=== PATIENT | female | born 1980 | race Caucasian/White ===

== ENCOUNTER 2021-05-30 15:43 | Emergency (ER) | payer OTHER ==
[~2021-05-30] VITALS: Ht 144.8 cm; Wt 76.3 kg
[2021-05-30 15:47] VITALS: BP 142/86
--- NOTE | 2021-05-30 15:58 | NUR ---
PATIENT AMBULATED TO BED 7.
--- NOTE | 2021-05-30 16:12 | NUR ---
PA CORBETT BEDSIDE EVALUATING PT
--- NOTE | 2021-05-30 16:19 | NUR ---
URINE WALKED TO LAB AND HANDED TO ELIOT
--- NOTE | 2021-05-30 16:23 | NUR ---
40Y FEMALE WITH C/O 12/07 LLQ AND LUQ ABDOMINAL PAIN X3 DAYS. PER PATIENT "THE PAIN IS MAINLY FELT IN THE LLQ AND LUQ, BUT IS SOMETIMES FELT MID-UPPER ABDOMINAL REGION." PT ALSO EXPERICING N/V. PT ABDOMEN IS SOFT AND TENDER TO TOUCH. BOWEL SOUNDS ACTIVE. PT DENIES ANY CP, SOB, FEVER/CHILLS. PT A&OX4, SKIN DRY AND INTACT. PMH:DENIES NKA
[2021-05-30] MEDS ORDERED: KETOROLAC 30 MG/ML VIAL IM ONE (16:25)
[2021-05-30] MEDS ORDERED: ONDANSETRON 4 MG/2 ML VIAL IVP ONE (16:25)
--- NOTE | 2021-05-30 16:38 | NUR ---
CT CONSENT SIGNED AND PLACED INTO PATIENT CHART
[2021-05-30] MEDS: NACL 0.9% 1,000 ML IV SCH ×2 (16:47→19:55)
--- NOTE | 2021-05-30 16:50 | NUR ---
BLOODWORK COLLECTED AND WALKED TO LAB
[2021-05-30 17:14] LABS: APPEARANCE,URINE CLEAR (CLEAR); BILIRUBIN,URINE NEGATIVE (NEGATIVE); BLOOD, URINE 2+ (NEGATIVE); COLOR,URINE YELLOW (YELLOW); LEUKOCYTE ESTERASE ,URINE 3+ (NEGATIVE); NITRITE, URINE NEGATIVE (NEGATIVE); UGLUCOSE NEGATIVE (NEGATIVE)
[2021-05-30 17:15] LABS: BASOPHILS # (AUTO) 0.1 K/uL (0.00-0.22); BASOPHILS % (AUTO) 0.9 % (0.0-2.0); EOSINOPHILS # (AUTO) 0.2 K/uL (0-0.4); EOSINOPHILS % (AUTO) 2.2 % (0.0-4.0); HEMATOCRIT 27.9 % (36-48); HEMOGLOBIN 8.6 g/dL (12.0-16.0); LYMPHOCYTES # (AUTO) 1.7 K/uL (2.5-16.5); LYMPHOCYTES % (AUTO) 18.2 % (20.5-51.1); MEAN CORPUSCULAR HEMOGLOBIN 20 pg (27-31); MEAN CORPUSCULAR HGB CONC 31 g/dL (33-37); MEAN CORPUSCULAR VOLUME 65.8 fL (80-94); MONOCYTES # (AUTO) 0.5 K/uL (0.8-1.0); MONOCYTES % (AUTO) 5.4 % (1.7-9.3); NEUTROPHILS # (AUTO) 6.8 K/uL (1.8-7.7); NEUTROPHILS % (AUTO) 73.3 % (42.2-75.2); PLATELET COUNT (AUTO) 553 K/uL (140-450); RED BLOOD CELL COUNT(AUTO) 4.24 MIL/uL (4.20-5.40); RED CELL DISTRIBUTION WIDTH 16.6 % (11.6-13.7); WHITE BLOOD COUNT (AUTO) 9.3 K/uL (4.8-10.8)
[2021-05-30 17:21] LABS: RBC,URINE 20-50 /HPF (0-5); WBC,URINE 16-25 (MOD) /HPF (0-5)
[2021-05-30 17:27] LABS: ALBUMIN 2.9 g/dL (3.4-5.0); ANION GAP 14.8 (8-16); CARBON DIOXIDE 24.9 mmol/L (21-32); CREATININE 1.1 mg/dL (0.6-1.3); POTASSIUM 3.7 mmol/L (3.5-5.1); TOTAL BILIRUBIN 0.3 mg/dL (0.0-1.0)
--- NOTE | 2021-05-30 17:49 | NUR ---
Patient appears to be resting comfortably in bed. Vital Signs within normal limits. Respirations even and unlabored.
--- NOTE | 2021-05-30 17:53 | NUR ---
PT SENT TO CT VIA W/C WITH COOKER MECHANIC
--- NOTE | 2021-05-30 17:54 | NUR ---
PT TAKEN TO CT VIA W/C
--- NOTE | 2021-05-30 18:03 | NUR ---
PT BACK FROM CT
[2021-05-30] MEDS ORDERED: IBUP-2213 PO ×2 (19:24→22:28)
--- NOTE | 2021-05-30 19:35 | NUR ---
Pt report given to BETY ELLIS. Transfer of care at this time.
[2021-05-30] MEDS ORDERED: SULF-59 PO (19:41)
[2021-05-30] MEDS ORDERED: ACET-8386 PO (19:41)
[2021-05-30] MEDS ORDERED: cefTRIAXone 1,000 MG VIAL ONE (20:12)
--- NOTE | 2021-05-30 20:21 | NUR ---
Ultrasound at bedside.
--- NOTE | 2021-05-30 20:25 | NUR ---
ULTRASOUND AT BEDSIDE
[2021-05-30] MEDS ORDERED: CIPR500T9 PO (22:10)
[2021-05-30] MEDS ORDERED: CIPR500T4 PO (22:28)
[2021-05-30] MEDS ORDERED: DOCU-299 PO (22:28)
[2021-05-30] MEDS ORDERED: HYDR-5080 PO (22:28)
[2021-05-30 22:29] VITALS: BP 126/78
--- NOTE | 2021-05-30 22:33 | NUR ---
Patient discharged with v/s stable. Written and verbal after care instructions given and explained. Patient alert, oriented and verbalized understanding of instructions. Ambulatory with steady gait. All questions addressed prior to discharge. ID band removed. Patient advised to follow up with PMD. Rx of HYDROCODONE/ACETAMINOPHEN, CIPROFLOXACIN, IBUPROFEN given. Patient educated on indication of medication including possible reaction and side effects. Opportunity to ask questions provided and answered.
--- NOTE | 2021-06-01 16:55 | NUR ---
LATE ENTRY. ROCEPHIN DISCONTINUED AT 2229 ON 05/30/21
== END 2021-05-30 22:33 | disposition home or self-care (01) ==
LOC: MED 15:43
DX: N20.0 Calculus of kidney (principal); N39.0 Urinary tract infection, site not specified; N83.209 Unspecified ovarian cyst, unspecified side
CPT/HCPCS: 36415; 74177; 76856; 80053; 81001; 81025; 83690; 85025; 87086; 93976; 96361; 96365; 96366; 96372; 96375; 99285; J0696; J1885; J2405; J7030; Q0092; Q9967

== ENCOUNTER 2021-12-06 19:25 | Inpatient (IN) | payer OTHER ==
[~2021-12-06] VITALS: Ht 144.8 cm; Wt 72.6 kg
[~2021-12-06 19:25] MED LIST: CIPR500T4 PO; DOCU-299 PO; HYDR-5080 PO; IBUP-2213 PO
[2021-12-06 19:45] VITALS: BP 112/78
--- NOTE | 2021-12-06 19:50 | NUR ---
RECEIVED PT IN BED 4, AAOX4. VERBALIZED CC: LEFT LOWER BACK, RISING W/ OOZING PUSTULE DRAINAGE, PT IS CURRENTLY ON IVPB ERTAPENEM 1 GM DAILY. THIS PT IS S/P GB REMOVAL 3 WEEKS AGO- HAS LAPAROSCOPIC INCISSIONS X3, AND UMBILICUS, HEALING W/ GOOD INTENTION.PT ALSO W/ HX OF 8 KIDNEY STONES REMOVAL IN AUGUST 2021, WAS TOLD SHE HAS 4 STONES THAT WERE NOT RETRIVABLE IN Sx DUE TO HER KIDNEY'S UNUSUAL SHAPE.
--- NOTE | 2021-12-06 20:18 | NUR ---
SEEN AT BEDSIDE BY DR ELIZABETH.
--- NOTE | 2021-12-06 20:36 | NUR ---
PT W/ RT UPPER ARM MIDLINE. ON ANTIBX AT HOME.
[2021-12-06 21:03] LABS: BASOPHILS # (AUTO) 0.1 K/uL (0.00-0.22); EOSINOPHILS # (AUTO) 0.2 K/uL (0-0.4); EOSINOPHILS % (AUTO) 2.2 % (0.0-4.0); HEMATOCRIT 23.9 % (36-48); HEMOGLOBIN 7.4 g/dL (12.0-16.0); MEAN CORPUSCULAR HEMOGLOBIN 22 pg (27-31); MEAN CORPUSCULAR HGB CONC 31 g/dL (33-37); MONOCYTES # (AUTO) 0.5 K/uL (0.8-1.0); MONOCYTES % (AUTO) 5.6 % (1.7-9.3); NEUTROPHILS # (AUTO) 6.7 K/uL (1.8-7.7); NEUTROPHILS % (AUTO) 70.2 % (42.2-75.2); PLATELET COUNT (AUTO) 677 K/uL (140-450); RED BLOOD CELL COUNT(AUTO) 3.41 MIL/uL (4.20-5.40); RED CELL DISTRIBUTION WIDTH 21.7 % (11.6-13.7); WHITE BLOOD COUNT (AUTO) 9.5 K/uL (4.8-10.8)
[2021-12-06 21:24] LABS: ALBUMIN 2.1 g/dL (3.4-5.0); ANION GAP 13.4 (8-16); ASPARTATE AMINOTRANSFERASE 52 U/L (15-37); CARBON DIOXIDE 26.4 mmol/L (21-32); CHLORIDE 103 mmol/L (98-107); CREATININE 1.2 mg/dL (0.6-1.3); GFR ARICAN-AMERICAN 64 mL/min (>90); GLUCOSE 96 mg/dL (74-106); POTASSIUM 3.8 mmol/L (3.5-5.1); SODIUM SERUM 139 mmol/L (136-145); TOTAL BILIRUBIN 0.1 mg/dL (0.0-1.0); UREA NITROGEN, BLOOD 12 mg/dL (7-18)
--- NOTE | 2021-12-06 21:52 | NUR ---
Pt returned to room #[address] scan.
[2021-12-06] MEDS ORDERED: PIPERACILLIN/TAZOBACTAM 2.25 GM in DEXTROSE 5% 50 ML IV ONE (22:45)
[2021-12-06] MEDS ORDERED: VANCOMYCIN 1GM/DEXT 5% PREMIX 200 ML IV ONE (22:45)
[2021-12-06] MEDS ORDERED: VANCOMYCIN PER PHARMACY MC PRN ×2 (22:45→23:20)
[2021-12-06] MEDS ORDERED: KCL 20 MEQ/WATER INJ PREMIX 200 ML IV PRN (23:20)
[2021-12-06] MEDS: NACL 0.9% 1,000 ML IV SCH (23:20)
[2021-12-06] MEDS ORDERED: ONDANSETRON 4 MG/2 ML VIAL IVP PRN (23:20)
[2021-12-06] MEDS ORDERED: MORPHINE SULFATE 4 MG/ML SYR IVP PRN (23:20)
[2021-12-06] MEDS ORDERED: HYDROcodone/APAP 5/325 MG 1 TAB TAB PO PRN (23:20)
[2021-12-07] MEDS ORDERED: VANCOMYCIN 1,000 MG VIAL ONE (00:03)
[2021-12-07] MEDS ORDERED: PIPERACILLIN/TAZOBACTAM 2.25 GM VIAL IV ONE (00:03)
--- NOTE | 2021-12-07 01:04 | NUR ---
Patient will be admitted to care of Dr Burns. Admited to room 106B. SBAR report Belongings list completed. SBAR Report to Yuliya LERMA at bedside. Pt NPO except for meds.
[2021-12-07 02:34] VITALS: BP 119/85
[2021-12-07] MEDS ORDERED: PIPERACILLIN/TAZOBACTAM 3.375 GM VIAL IV ONE (06:39)
[2021-12-07 06:55] LABS: ALBUMIN 1.8 g/dL (3.4-5.0); ANION GAP 14.5 (8-16); CARBON DIOXIDE 24.3 mmol/L (21-32); POTASSIUM 3.8 mmol/L (3.5-5.1); TOTAL BILIRUBIN 0.2 mg/dL (0.0-1.0)
[2021-12-07] MEDS: PIPERACILLIN/TAZOBACTAM 3.375 GM in DEXTROSE 5% 50 ML IV SCH ×4 (06:55→23:54)
--- NOTE | 2021-12-07 07:10 | NUR ---
RECEIVED REPORT FROM ARMORED TRUCK DRIVER NURSE CANDY FOR CONTINUITY OF CARE. PATIENT ASLEEP NO DISTRESS NOTED. RESPIRATION EVEN AND NOT LABORED NO SHORTNESS OF BREATH ON ROOM AIR. IV SITE ON RIGHT UPPER ARM MIDLINE RUNNING ZOSYN AT 100 CC/HOUR. ALL SAFETY MEASURE IN PLACE.
[2021-12-07 08:00] VITALS: BP 119/72
--- NOTE | 2021-12-07 09:25 | NUR ---
I TRIED TO GIVE PATIENT HEPARIN BUT SHE REFUSED EVEN WITH ENCOURAGEMENT AND EXPLANATION OF RISK AND BENEFIT. PATIENT ASK TO CHANGE THE LEFT S/P NEPHROSTOMY STENT SITE TO BE CHANGE NOTED WITH YELLOWISH DRAINAGE DRESSING IS SOAK CLEANSE AND CHANGE DRESSING.
--- NOTE | 2021-12-07 09:29 | NUR ---
PATIENT ASKING WHEN SHE CAN EAT INFORM DR. COPELAND THAT AT NURSE STATION AND HE SAID LET WAIT WHAT THE DEFENSE ATTORNEY WANT FOR PATIENT INFORM PATIENT REGARDING DR. COPELAND ADVICE AND SHE UNDERSTAND.
--- NOTE | 2021-12-07 10:26 | NUR ---
PATIENT HAS BEEN SCREENED AND CATEGORIZED LOW NUTRITION RISK. PATIENT WILL BE SEEN WITHIN 7 DAYS OF ADMISSION. 12/06/21-12/13/[address]
[2021-12-07 12:00] VITALS: BP 118/66
--- NOTE | 2021-12-07 12:21 | NUR ---
I CHECKED PATIENT IV AND SHE ASKED AGAIN WHEN CAN SHE EAT PATIENT STATED I'M SO HUNGRY AND THIRSTY LEFT MESSAGE TO DR. COPELAND WAITING FOR HIS RESPONSE.
[2021-12-07] MEDS: NACL 0.9% 1,000 ML IV SCH (12:36)
--- NOTE | 2021-12-07 13:29 | NUR ---
PATIENT ASKING THE RESULT OF HER BLOOD DRAWN THIS MORNING AND THE CT SCAN READ TO THE RESULT VERBALIZED UNDERSTANDING.
--- NOTE | 2021-12-07 13:52 | NUR ---
PATIENT COMPLAIN OF HEADACHE MEDICATED ORDER AND DR. COPELAND ORDER TO GIVE PATIENT DIET ORDER NOTED AND CARRIED OUT. PATIENT VERBALIZED THAT HER HEADACHE IS BETTER NOW.
[2021-12-07 16:00] VITALS: BP 109/66
--- NOTE | 2021-12-07 16:00 | NUR ---
PATAIENT ON BED RESTING ON STABLE CONDITION IV INFUSING AT 80 CC/HOUR TOLERATED WELL NO FLUID OVERLOAD NOTED.
--- NOTE | 2021-12-07 18:30 | NUR ---
MARIA GUADALUPE MCGRAW IV ANTIBIOTIC NO ADVERSE REACTION. NO FEVER OR CHILLS ENCOURAGED TO INCREASE FLUID TOLERATED.
--- NOTE | 2021-12-07 19:09 | NUR ---
PATIENT IV ANTIBIOTIC DONE NO ADVERSE REACTION NOTED. PATIENT HAD VISITOR AT BED SIDE. PATIENT START EATING HER DINNER CALL LIGHT WITH IN EASY REACH.
--- NOTE | 2021-12-07 19:26 | NUR ---
Gave report to nurse Duron for continue of care.
[2021-12-07 20:00] VITALS: BP 108/71
--- NOTE | 2021-12-07 20:00 | NUR ---
Patient is A/O x4, ambulatory, c/o headache, given tylenol as ordered. left flank dressing is clean, dry and intact. Patient is on antibiotics, waiting for culture results. Vital signs are stable.
[2021-12-07] MEDS: ACETAMINOPHEN 325 MG TAB PO PRN (20:01)
[2021-12-08] VITALS: BP 110/75
[2021-12-08] MEDS: NACL 0.9% 1,000 ML IV SCH ×2 (00:02→11:57)
[2021-12-08 04:00] VITALS: BP 104/70
[2021-12-08] MEDS: PIPERACILLIN/TAZOBACTAM 3.375 GM in DEXTROSE 5% 50 ML IV SCH ×2 (05:16→11:57)
--- NOTE | 2021-12-08 07:24 | NUR ---
RECEIVED REPORT FROM SCIENCE INSTRUCTOR NURSE CAMERON FOR CONTINUITY OF CARE. PATIENT ASLEEP NO DISTRESS NOTED RESPIRATION EVEN AND NOT LABORED ON ROOM AIR. PATIENT IV SITE ON RIGHT UPPER ARM MIDLINE RUNNING NS AT 80 CC/HOUR. NO FEVER OR CHILLS NOTED. CALL LIGHT WITH IN EASY REACH.
[2021-12-08 07:26] LABS: ALBUMIN 1.9 g/dL (3.4-5.0); ANION GAP 15.1 (8-16); CARBON DIOXIDE 23.7 mmol/L (21-32); CREATININE 1.2 mg/dL (0.6-1.3); POTASSIUM 3.8 mmol/L (3.5-5.1); TOTAL BILIRUBIN 0.2 mg/dL (0.0-1.0)
[2021-12-08 08:00] VITALS: BP 101/65
[2021-12-08] MEDS: ACETAMINOPHEN 325 MG TAB PO PRN ×2 (08:32→14:53)
--- NOTE | 2021-12-08 08:35 | NUR ---
Patient refused to have her heparin even with encouragement and explanation of risk and benefit. Patient complain of headache given Tylenol as ordered. Encourage to eat breakfast as served. Call light with in easy reach.
--- NOTE | 2021-12-08 09:16 | NUR ---
DC PLANNING LATE ENTRY, PT SEEN 12/07 AT 11:00AM SW MET WITH PATIENT AT BEDSIDE TO COMPLETE ASSESSMENT. PATIENT REPORTS RESIDING AT HOME WITH WITH HER FAMILY AT THE ADDRESS LISTED ON FILE. PATIENT IDENTIFIED YU JAMES (FATHER) [phone] AND DAWNA HA (PARTNER) [phone] EMERGENCY CONTACT AND MDM. PATIENT DENIED AD IN PLACE AND DECLINED AD OFFERED BY RASHMI. PATIENT REPORTS MEETING WITH PCP, NEEDED, LAST VISIT; JUNE 19. PATIENT REPORTS MEDICATION COMPLIANCE AND DENIES BARRIERS IN ACCESS TO NEEDED MEDICATIONS. PATIENT REPORTS PICKING UP MEDICATIONS FROM [facility] ON [address] IN [place], WHEN NEEDED. PATIENT REPORTS BEING AMBULATORY AND COMPLETES ALL ADL'S INDEPENDENTLY. PATIENT REPORTS RECEIVING HH SERVICES, HOWEVER STRUGGLED TO RECALL NAME OF AGENCY. PATIENT REPORTS HH WAS SET UP BY [facility] AND SERVICE BEGAN 11/28 FOR ANTIBIOTICS FOR 10 DAYS. PATIENT DENIES MH/SA HX. PATIENT REPORTS ADEQUATE FOOD SOURCE AND DENIES BARRIERS IN ACCESS TO FOOD. PATIENT ADEQUATE FRIEND AND FAMILY SUPPORT. PATIENT REPORTS DC PLAN IS TO RETURN HOME WITH FAMILY PROVIDING TRANSPORTATION AND AIDING IN CARE, IF REQUIRED. RASHMI INQUIRED ON RESOURCES NEED. PATIENT DECLINED.
--- NOTE | 2021-12-08 10:00 | NUR ---
PATIENT NO CHECKED HOW IS HEAR HEADACHE AND SHE VERBALIZED RELIEF. IV HYDRATION ONGOING NO FLUID OVER LOAD NOTED.
--- NOTE | 2021-12-08 11:56 | NUR ---
PATIENT ON BED USING HER PHONE. WILL BE BACK TO DO TREATMENT ON HER BACK.
--- NOTE | 2021-12-08 11:58 | NUR ---
MARIA GUADALUPE CORTEZ ADMINISTER IV ZOSYN TOLERATED WELL.
[2021-12-08 12:00] VITALS: BP 104/62
[2021-12-08] MEDS ORDERED: CEFD300C3 PO (13:44)
[2021-12-08] MEDS ORDERED: IBUP-2213 PO (13:44)
[2021-12-08] MEDS ORDERED: HYDR-5080 PO (13:44)
--- NOTE | 2021-12-08 13:46 | NUR ---
TREATMENT ON HER BACK DONE NOTED WITH JUST SCANT DRAINAGE. PATIENT ASKING WHEN IS GOING TO BE DISCHARGE LEFT MESSAGE TO DR. COPELAND AND HER WRITE THE ORDER NOW FOR DISCHARGE.
[2021-12-08 13:48] VITALS: BP 104/62
--- NOTE | 2021-12-08 15:30 | NUR ---
PATIENT ALERT AND ORIENTED ABLE TO MAKE NEEDS KNOWN RESPIRATION EVEN AND NOT LABORED NO SHORTNESS OF BREATH. GIVEN THE DISCHARGE PACKET WITH INSTRUCTION AND PATIENT VERBALIZED UNDERSTANDING. REMOVED NAME BAND AND MIDLINE LEFT TO THE PATIENT PATIENT WANT IT TO BE REMOVED AT [facility] OR THE NURSE FROM HOME HEALTH THAT GOES TO HER HOME. ALL BELONGING TAKEN BY PATIENT. PATIENT WHEELED UNTIL THEIR PRIVATE CAR ON STABLE CONDITION.
== END 2021-12-08 15:41 | disposition home or self-care (01) | DRG 466 ==
LOC: MED 19:25 → MTU 23:23
PROVIDERS: ADMIT Student in an Organized Health Care Education/Training Program; ATTEND Student in an Organized Health Care Education/Training Program
DX: T83.593A Infection and inflammatory reaction due to other urinary stents, initial encounter (principal); E44.0 Moderate protein-calorie malnutrition; R64 Cachexia; N10 Acute pyelonephritis; N20.0 Calculus of kidney; E66.9 Obesity, unspecified; I10 Essential (primary) hypertension; E86.1 Hypovolemia; Z20.822 Contact with and (suspected) exposure to COVID-19; Z68.34 Body mass index [BMI] 34.0-34.9, adult; Y84.8 Other medical procedures as the cause of abnormal reaction of the patient, or of later complication, without mention of misadventure at the time of the procedure; Y92.009 Unspecified place in unspecified non-institutional (private) residence as the place of occurrence of the external cause
CPT/HCPCS: 36415; 80053; 83690; 85025; 87040; 87070; 87081; 96365; 96367; 99285; J1644; J2543; J3370; J7060; Q9967